=== PATIENT | female | born 1940 | race Caucasian/White ===

== ENCOUNTER 2018-10-17 09:45 | Inpatient (IN) ==
[2018-10-17] MEDS ORDERED: Metoprolol Tartrate 25 MG Tablet PO ONE (10:15)
[2018-10-17] MEDS ORDERED: Chlorhexidine 4% Topical 120 APPLIC/120 ML Bottle TOPICAL SCH (10:15)
[2018-10-17] MEDS ORDERED: Sodium Chlor 0.9% Inj 500 ML IV.CONT ONE (10:15)
[2018-10-17] MEDS ORDERED: Chlorhexidine Gluconate 2% 1 Pack (2 Cloths) TOPICAL ONE (10:15)
[2018-10-17] MEDS ORDERED: Dexamethasone Inj 20 MG/5 ML Vial IV.PUSH ONE (10:30)
[2018-10-17] MEDS ORDERED: SODIUM CHLOR 0.9% IV.SIG SCH (11:00)
[2018-10-17] MEDS ORDERED: Tranexamic Acid Inj 3,000 MG in Sodium Chlor 0.9% Inj 100 ML P-ARTICULR SCH (11:00)
[2018-10-17] MEDS ORDERED: Sodium Chlor 0.9% Inj 73.07 ML, Ropivacaine 0.5% PF Inj 24.63 ML, Ketorolac Inj 30 MG, ... P-ARTICULR SCH ×5 (11:00)
[2018-10-17] MEDS ORDERED: TRANEXAMIC ACID IV.SIG SCH (11:00)
[2018-10-17] MEDS ORDERED: Vancomycin Inj 1,000 MG in Sodium Chlor 0.9% Inj 250 ML IV.SIG SCH (11:00)
[2018-10-17] MEDS ORDERED: Post-op Orders (for Pharmacy) OTHER STA (13:09)
[2018-10-17] MEDS ORDERED: HYDROmorphone PF Inj 1 MG/ML Ampul IV.PUSH PRN (13:09)
[2018-10-17] MEDS ORDERED: Bisacodyl 10 MG Supp RECTAL PRN (13:09)
[2018-10-17] MEDS ORDERED: fentaNYL Citrate Inj 100 MCG/2 ML Ampul ONE (13:13)
[2018-10-17] MEDS ORDERED: Famotidine PF Inj 20 MG/2 ML Vial ONE (13:13)
[2018-10-17] MEDS ORDERED: ceFAZolin 2 GM Premix Inj 2 GM/50 ML PIGGYBACK IV.SIG ONE (15:16)
[2018-10-17] MEDS ORDERED: hydrALAZINE HCl Inj 20 MG/ML Vial ONE ×2 (16:09→17:20)
[2018-10-17] MEDS ORDERED: *morphine SULFATE 4 MG/ML PERIprocedure ONLY ONE ×2 (16:20→16:26)
[2018-10-17] MEDS ORDERED: hydrALAZINE HCl Inj 20 MG/ML Vial IV.PUSH ONE ×2 (16:30→18:15)
[2018-10-17] MEDS ORDERED: *HYDROmorphone PF Inj 1 MG/ML Ampul PERIprocedural Use ONLY ONE (16:32)
--- NOTE | 2018-10-17 16:37 | XR ---
EXAM DATE: 10/17/2018 4:19 PM EST AGE/SEX: 78 years / Female INDICATIONS: Post Op left knee replacement. CLINICAL DATA: This is the patient's initial encounter. Patient reports that signs and symptoms have been present for 1 day and indicates a pain score of 0/10. MEDICAL/SURGICAL HISTORY: None. None. COMPARISON: . FINDINGS: Left knee arthroplasty in anatomic alignment. Hardware thoracic components are well-positioned. No si gnificant fracture. Immediate postsurgical soft tissue changes. CONCLUSION: 1. Status post left knee arthroplasty in anatomic alignment without acute fracture. Electronically signed by: Paul Jarquin MD 10/17/2018 4:35 PM EST
[2018-10-17] MEDS ORDERED: *Enalaprilat Inj 1.25 MG/ML Vial IV.PUSH ONE (16:47)
[2018-10-17] MEDS ORDERED: Clindamycin 900 mg/NS Premix 900 MG/50 ML PIGGYBACK IV.SIG SCH (17:00)
[2018-10-17] MEDS ORDERED: *Ondansetron Inj 4 MG/2 ML Vial PERIprocedural Use ONLY ONE (18:16)
--- NOTE | 2018-10-17 18:22 | MP ---
cc: Bryan Gibbons MD DATE OF OPERATION: 10/17/2018 DATE OF PROCEDURE: 10/17/2018. PREOPERATIVE DIAGNOSIS: Left knee osteoarthritis. POSTOPERATIVE DIAGNOSIS: Left knee osteoarthritis. PROCEDURE: Left total knee arthroplasty. SURGEON: Bryan Gibbons MD QUESTIONED DOCUMENTS EXAMINER: KALYANI Santos. ANESTHESIA: General. ESTIMATED BLOOD LOSS: 200 mL. TOURNIQUET TIME: 2 minutes at 250 mmHg. COMPLICATIONS: None. IMPLANTS USED: DePuy Attune size 5 posterior stabilized femoral component, size 5 rotating platform tibial baseplate, size 38 patella, size 8 mm polyethylene tibial insert. INDICATIONS: This patient is a 78-year-old female who has a history of severe osteoarthritis involving the left knee joint. She has severe disabling pain with standing, walking, ambulation, weightbearing activities, and severe pain that does interfere with activities of daily living. She has failed greater than 3 months of nonoperative conservative treatment to include medication therapy, injections, ambulatory assistive aids, home exercise program, activity modification and weight loss attempts. X-ray of the left knee revealed severe osteoarthritis with [id number] joint space narrowing, subchondral sclerosis, subchondral cyst, osteophyte formation with subluxation and deformity. The patient was counseled as to the risks, benefits and alternatives to a total knee arthroplasty. The risks were discussed, which include, but are not limited to anesthesia, bleeding, infection, damage to nerves and blood vessels, pain, stiffness, failure of implants, blood clots pulmonary embolism, and even . The patient's pain is fair. She favored the benefits over the risks and did wish to proceed with surgery. PROCEDURE IN DETAIL: Written consent was obtained. The patient was identified by name, taken to the operating room and placed supine on the operating table. General anesthesia was administered to the patient as well as 2 grams of IV Ancef and 1 gram IV vancomycin. A well-padded tourniquet was placed high on the left thigh. The left lower extremity prepped and draped using isopropyl alcohol, Hibiclens solution and ChloraPrep solution. After a timeout was performed, Esmarch bandage was used to exsanguinate the left lower extremity and tourniquet inflated to 250 mmHg. A longitudinal incision was made over the anterior aspect of the left knee. A medial parapatellar arthrotomy was performed. The patella was everted. Patellar resection guide was used to resect 9 mm of the patella. A size 38 mm guide was placed and 3 drill holes were placed. The 38 mm trial fit well. At this point, I deflated the tourniquet because it appeared to have a venous tourniquet effect. Attention was turned to the femur where an instrument guide was placed. The distal femoral guide was set to remove 10 mm of distal femur, 5 degrees off the anatomic valgus axis alignment. Oscillating saw was used to perform the distal femoral cut. Attention was turned to the tibia. An extramedullary tibial guide was set to remove 6 mm of the lowest portion of the medial tibial plateau. The tibial guide was pinned in place. Tibial cut was performed. A 5 mm spacer block showed full extension. Attention was turned back to the femur where an AP sizing block measured a size 5. The anterior reference 3-degree external rotation guide was used to pin size [address] The anterior, posterior and chamfer cuts were performed. A size 5 PCL box has been placed and the PCL was box cut with an oscillating saw. The medial and lateral meniscus remnants were removed, as well as bone and soft tissue debris from the posterior portion of the knee. A size 5 tibia base plate was pinned in place and tibia was drilled and punched. Trial components were removed and final components cemented in place. The current components the leg could achieve full extension to 0 degrees, flexion to 140. No evidence of tibial liftoff. Varus/valgus balance appropriate and symmetric and the patella was noted to track centrally. With the tourniquet fully deflated, Bovie cautery was used for hemostasis. The knee was thoroughly irrigated with sterile saline pulse lavage antibiotic-impregnated solution. The arthrotomy incision was closed with #1 Vicryl suture, subcutaneous layer 2-0 Vicryl suture, skin was closed with Dermabond. Sterile dressing applied. The patient tolerated the procedure well with no intraoperative complications noted. Mart Osorio, Physician Plant Health Manager-Certified, was present for the entire procedure to include patient position and procedure itself. Medical necessity of a physician warehouse administrative assistant was indicated in this case due to the complexity of the procedure to assist with appropriate manipulation of the leg and also retraction of muscle, tendon, bone, and neurovascular structures. He assisted with preparation of bone and also implantation of the prosthetic replacement. MD ANGELINA Gunter/slim , 03:36 PM , 03:45 PM
[2018-10-17] MEDS ORDERED: Insulin NovoLIN Regular Correctional Sugar Inj ONE ×2 (19:03→23:17)
[2018-10-17] MEDS ORDERED: Zolpidem Tartrate 5 MG Tablet PO PRN (21:00)
[2018-10-17] MEDS ORDERED: Dextrose 50% in Water 50 ML Vial IV.PUSH PRN (23:21)
[2018-10-17] MEDS: Senna/Docusate Sodium 8.6/50 MG Tablet PO SCH (23:41)
[2018-10-17] MEDS: Multivitamin/Minerals Therapeutic Tablet PO SCH (23:44)
[2018-10-18 05:03] LABS: Hematocrit 28.7 % (35.0-46.0); Hemoglobin 9.6 gm/dL (11.6-15.3)
[2018-10-18] MEDS: Insulin NovoLIN Regular Correctional Sugar Inj SQ SCH ×2 (08:00→12:00)
[2018-10-18] MEDS: Multivitamin/Minerals Therapeutic Tablet PO SCH (08:43)
[2018-10-18] MEDS: Senna/Docusate Sodium 8.6/50 MG Tablet PO SCH (08:44)
--- NOTE | 2018-10-18 08:49 | P.DCO ---
- Physical Therapy Physical Therapy: Gait training, Safety evaluation, Transfer training, bed to chair Knee: Total knee, Protocol: Left, Full weight bearing Left Lower Extremity Weight Bearing: Weight bearing as tolerated - Nursing Nursing: Dressing changes Dressing changes: Do not change dressing, Daily dressing change - Certification Need for Home Health services: I have seen patient Debora Alfaro on 10/18/18. My clinical findings support the need for the requested home health care services because: Need for Home Health Services: Limited ability to care for self, High risk of falls Homebound Certification: I certify that my clinical findings support that this patient is homebound because: Homebound Certification: Post-op weakness, Unsteady gait/balance
--- NOTE | 2018-10-18 08:51 | P.PNOP ---
Subjective Interval history: pain controlled. Physical Exam Vital signs: Vital Signs 10/17/18 10:41 10/17/18 13:52 10/17/18 16:00 Temperature 98.7 F 97.5 F L Pulse Rate 75 Respiratory Rate 20 14 Blood Pressure 209/86 H 227/103 H Pulse Oximetry 96 99 2 L 10/17/18 16:06 10/17/18 16:15 10/17/18 16:22 Temperature Pulse Rate 71 65 67 Respiratory Rate 14 16 14 Blood Pressure 211/91 H 198/74 H 211/85 H Pulse Oximetry 99 99 100 10/17/18 16:30 10/17/18 16:37 10/17/18 16:45 Temperature Pulse Rate 72 67 71 Respiratory Rate 16 12 12 Blood Pressure 191/80 H 182/76 H 194/81 H Pulse Oximetry 99 99 99 10/17/18 17:00 10/17/18 17:15 10/17/18 17:30 Temperature Pulse Rate 69 75 87 Respiratory Rate 13 17 19 Blood Pressure 199/84 H 199/85 H 177/77 H Pulse Oximetry 99 99 100 10/17/18 17:45 10/17/18 18:00 10/17/18 18:24 Temperature Pulse Rate 82 81 79 Respiratory Rate 19 18 13 Blood Pressure 173/71 H 154/70 H 159/72 H Pulse Oximetry 98 98 95 10/17/18 19:00 10/17/18 20:00 10/17/18 21:00 Temperature 97 F L Pulse Rate 84 63 90 Respiratory Rate 17 16 20 Blood Pressure 152/69 H 145/67 H 184/96 H Pulse Oximetry 97 95 96 10/17/18 22:00 10/17/18 23:00 10/18/18 00:00 Temperature Pulse Rate 63 66 68 Respiratory Rate 16 14 16 Blood Pressure 128/61 182/77 H 160/71 H Pulse Oximetry 93 L 97 97 10/18/18 01:00 10/18/18 02:00 10/18/18 02:20 Temperature 98.0 F Pulse Rate 64 64 69 Respiratory Rate 14 22 16 Blood Pressure 176/74 H 182/78 H 182/84 H Pulse Oximetry 97 97 98 10/18/18 02:45 10/18/18 04:15 Temperature 97.8 F 97.7 F Pulse Rate 79 66 Respiratory Rate 18 18 Blood Pressure 195/86 H 158/70 H Pulse Oximetry 98 92 L Intake & Output 10/17/18 10/18/18 10/18/18 18:59 06:59 18:59 Intake Total 2033.83 / 2033.83 2451 / 2451 Output Total 101 / 101 Balance 1932.83 / 1932.83 2451 / 2451 Weight 92.2 kg 92.2 kg Intake: IV 1413.83 / 1413.83 1106 / 1106 LR 1000 mL Inj 1,000 ML @ 80 1000 / 1000 1000 / 1000 mls/hr IV.CONT .[id number] [place] Rx# :[id number] Cleocin Inj 900 MG In NS Inj 106 / 106 100 ML @ 100 mls/hr IV.SIG Q8H [place] Rx#:[id number] Cyklokapron Inj 1,383 MG In NS 113.83 / 113.83 Inj 100 ML @ 200 mls/hr IV.SIG ONCE [place] Rx#:[id number] Vancomycin Inj 1,000 MG In NS 250 / 250 Inj 250 ML @ 250 mls/hr IV.SIG ADMINISTRATION MANAGER [place] Rx#:[id number] Ancef 2 GM Premix Inj 2 gm In 50 / 50 50 ml @ 100 mls/hr IV.SIG ONCE ONE Rx#:[id number] Oral 120 / 120 490 / 490 Anesthesia Amount 500 / 500 Other 855 / 855 Output: Urine Estimated Blood Loss 100 / 100 Other: # Voids 0 Date of Last Bowel Movement 10/17/18 # Bowel Movements 0 Weight On Admission 92.2 kg Narrative: in bed, nad dressing c/d/i neg homans nvi Results - Labs CBC & Chem 7: 10/18/18 04:50 Laboratory Results - last 24 hr 10/17/18 10/17/18 10/17/18 10:55 18:45 22:56 Hgb Hct POC Glucose 295 H 309 H Blood Type O Positive Blood Type Recheck Required Antibody Screen Negative 10/18/18 04:50 Hgb 9.6 L Hct 28.7 L POC Glucose Blood Type Blood Type Recheck Antibody Screen - Imaging Impressions Knee X-Ray 10/17/18 13:07 CONCLUSION: 1. Status post left knee arthroplasty in anatomic alignment without acute fracture. Assessment and Plan - Ortho Post Op Day # 1 - Assessment and Plan s/p L TKA wbat ok to maintain dressing unless saturated asa 81 d/c planning home with [facility] and pt - cleared today f/up dr. delcid 2 weeks
[2018-10-18] MEDS ORDERED: Spironolactone 25 MG Tablet PO SCH (09:00)
[2018-10-18 09:18] VITALS: BP 177/77; PULSE 65; RESP 16; TEMP 98.1; O2SAT 96
== END 2018-10-18 14:44 | disposition home health service (06) ==
LOC: HSDC 09:45 → EDSTATUS 13:00 → HSDI 13:21 → HPAC 23:10 → N06 10-18 02:26
PROVIDERS: ADMIT Orthopaedic Surgery Sports Medicine; ATTEND Orthopaedic Surgery Sports Medicine